=== PATIENT | male | born 1955 | race Caucasian/White ===

== ENCOUNTER 2021-03-26 19:52 | Emergency (ER) | payer MEDICARE ==
[2021-03-26 20:06] VITALS: RESP 18; TEMP 98.9
[2021-03-26] MEDS ORDERED: HYDROmorphone 0.5 MG/0.5 ML SYRINGE IVP STA (20:33)
--- NOTE | 2021-03-26 20:42 | ED ---
Lower Extremity Injury HPI - General Chief Complaint: Extremity Injury, Lower Stated Complaint: Fall Time Seen by Provider: 03/26/21 20:19 Source: patient Mode of arrival: EMS Limitations: no limitations - History of Present Illness Initial Comments: 65-year-old male presents to emergency department with a chief complaint of a fall. This occurred about one hour prior to arrival when he jumped a fence. Patient brought to the ED via EMS. Patient ready received 100 g of fentanyl. States he immediately felt pain in the left knee that is radiating distally. States most the pain is located in his knee and reports "it does not feel aligned." Patient denies any pain in the hip or the femur. Reports pain mostly distally. Patient reports pain with movement of the left knee. However, he denies any paresthesias. He denies any head injuries from the fall. - Related Data Home Medications Medication Instructions Recorded Confirmed Atorvastatin Calcium [Lipitor] 40 mg PO HS 03/26/21 03/26/21 Losartan/Hydrochlorothiazide 1 tab PO DAILY 03/26/21 03/26/21 [Losartan-Hctz 100-12.5 mg Tab] Omeprazole [PriLOSEC] 40 mg PO HS 03/26/21 03/26/21 amLODIPine [Norvasc] 10 mg PO DAILY 03/26/21 03/26/21 buPROPion HCL [buPROPion HCL SR] 150 mg PO DAILY 03/26/21 03/26/21 metFORMIN HCL 500 mg PO BID 03/26/21 03/26/21 Allergies Allergy/AdvReac Type Severity Reaction Status Date / Time No Known Allergies Allergy Verified 03/26/21 22:34 Review of Systems ROS Statement: Those systems with pertinent positive or pertinent negative responses have been documented in the HPI. ROS Other: All systems not noted in ROS Statement are negative. Past Medical History Past Medical History: Diabetes Mellitus, Hyperlipidemia, Hypertension History of Any Multi-Drug Resistant Organisms: None Reported Past Surgical History: Orthopedic Surgery Past Psychological History: No Psychological Hx Reported Smoking Status: Former smoker Past Alcohol Use History: Daily Past Drug Use History: None Reported General Exam Limitations: no limitations General appearance: alert, in no apparent distress, in distress Head exam: Present: atraumatic, normocephalic, normal inspection Eye exam: Present: normal appearance, PERRL, EOMI Pupils: Present: normal accommodation ENT exam: Present: normal exam, normal oropharynx, mucous membranes moist Neck exam: Present: normal inspection, full ROM. Absent: tenderness, lymphadenopathy Respiratory exam: Present: normal lung sounds bilaterally. Absent: respiratory distress, rales Cardiovascular Exam: Present: regular rate, normal rhythm, normal heart sounds. Absent: systolic murmur GI/Abdominal exam: Present: soft. Absent: distended, tenderness, guarding, rebound, rigid Extremities exam: Present: normal inspection (Left lateral deviation of the left leg at the knee.), tenderness (Left knee tenderness. He also has tenderness over the medial malleolus with some associated ecchymosis.), normal capillary refill, joint swelling (Left knee swelling), other (Palpable DP and PT bilaterally. Sensation intact in the left leg). Absent: full ROM (Limited range of motion of the left knee), pedal edema Back exam: Present: normal inspection, full ROM. Absent: tenderness, CVA tenderness (R), CVA tenderness (L), muscle spasm, paraspinal tenderness Neurological exam: Present: alert, oriented X3 Psychiatric exam: Present: normal affect, normal mood Skin exam: Present: warm, dry, intact, normal color Course Vital Signs 03/26/21 03/26/21 19:53 22:18 Temperature 98.9 F Pulse Rate 79 88 Respiratory 18 Rate Blood Pressure 115/62 121/71 O2 Sat by Pulse 97 100 Oximetry Procedures - Orthopedic Splinting/Casting Injury #1 Side: right Lower Extremity Injury Location: ankle Lower Extremity Immobilizer: posterior splint, stirrup splint, Jose wrap, synthetic pre-padded splint Medical Decision Making - Medical Decision Making 65-year-old male presents emergency Department with a chief complaint of a fall. On physical examination, he has lateral deviation of the left leg at the knee. Also has tenderness over the medial malleolus. Patient was given fentanyl in the ambulance and additional analgesia in the emergency department. Compartmen ts are soft. X-rays obtained show a comminuted fracture of the proximal tibia. There is also a medial malleolus fracture of the right ankle. Posterior splint with ankle stirrup applied. The immobilizer applied as well. I spoke to personally evaluated the patient and spoke to from [facility] who will accept the transfer via and lids. ambulance. Case discussed with . Disposition Clinical Impression: Fracture of proximal end of left tibia, Fractured medial malleolus Disposition: OTHER INSTITUTION NOT DEFINED Condition: Good Is patient prescribed a controlled substance at d/c from ED?: No Referrals: Nonstaff,Physician [REFERRING] - 1-2 days Time of Disposition: 23:44 - Out of Hospital Transfer - Req. Specs Out of Hospital Transfer - Requested Specifics: Other Emergency Center ([facility])
--- NOTE | 2021-03-26 21:45 | XR ---
EXAMINATION TYPE: XR tibia fibula LT DATE OF EXAM: 03/26/2021 COMPARISON: NONE HISTORY: Leg pain TECHNIQUE: 4 views FINDINGS: There is comminuted fracture of the proximal tibia. There is significant impaction of the m edial tibial condyle. Fracture line extends vertically into the tibial spines. There is knee joint ef fusion. The distal femur is intact. The ankle joint is intact. I see no definite fibula fracture. IMPRESSION: Impacted comminuted proximal tibial fracture.
--- NOTE | 2021-03-26 21:46 | XR ---
EXAMINATION TYPE: XR knee complete LT DATE OF EXAM: 03/26/2021 COMPARISON: NONE HISTORY: Pain TECHNIQUE: Review FINDINGS: There is transverse comminuted fracture proximal tibia. There is impaction of the fragments . There is no dislocation. There is knee joint effusion. Patella is intact. Distal femur is intact IMPRESSION: Impacted comminuted intra-articular fracture of the proximal tibia.
--- NOTE | 2021-03-26 21:47 | XR ---
EXAMINATION TYPE: XR Hip Complete LT DATE OF EXAM: 03/26/2021 COMPARISON: NONE HISTORY: Hip pain TECHNIQUE: 2 views FINDINGS: I see no fracture nor dislocation. Hip joint space is normal. There is no hip dysplasia. IMPRESSION: Negative left hip exam.
--- NOTE | 2021-03-26 21:48 | XR ---
EXAMINATION TYPE: XR ankle complete LT DATE OF EXAM: 03/26/2021 COMPARISON: NONE HISTORY: Pain TECHNIQUE: 3 views FINDINGS: Ankle mortise is anatomic. I see no fracture nor dislocation. Joint spaces are normal. IMPRESSION: Negative left ankle exam.
[2021-03-26] MEDS ORDERED: HYDROmorphone 1 MG/ML 1 ML SYRINGE IVP STA (22:05)
[2021-03-26 22:21] VITALS: BP 121/71; PULSE 88
--- NOTE | 2021-03-26 23:32 | XR ---
EXAMINATION TYPE: XR ankle complete RT DATE OF EXAM: 03/26/2021 COMPARISON: NONE HISTORY: Pain TECHNIQUE: 3 views FINDINGS: There is transverse fracture of the medial malleolus. Ankle mortise is anatomic. There is m edial soft tissue swelling. There is separation of the fragment 5 mm. There is no dislocation. There is soft tissue swelling. IMPRESSION: Acute mildly displaced fracture of the medial malleolus. Soft tissue swelling.
--- NOTE | 2021-03-26 23:36 | P.CNOR ---
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 The patient was jumping over small fence to get to his friends yard and came down and had sudden acute pain at his left knee. He was unable to get up and had to be brought to the hospital by ambulance. He had obvious deformity and pain in his left knee. He denied any prior problems with his knees. He denies any loss consciousness denies any pain in his neck or head. He does have some soreness at his right ankle as well. He denies seeing any bleeding. He denies any numbness tingling. Denies any antecedent pain or prior injury. The patient's brother was Dr. Taurus Nguyen who was an orthopedic surgeon here at [facility] last year. Review of Systems As stated per HPI. He does have some pain at his right ankle as well as his left knee. The bulk of his pains in his left knee. Unable walk or move around because of his knee pain. He denies any hip pain or abdominal pain denies chest pain shortness of breath. Denies any loss consciousness denies hitting his head. Past Medical History Past Medical History: Diabetes Mellitus, Hyperlipidemia, Hypertension History of Any Multi-Drug Resistant Organisms: None Reported Past Surgical History: Orthopedic Surgery Past Psychological History: No Psychological Hx Reported Smoking Status: Former smoker Past Alcohol Use History: Daily Past Drug Use History: None Reported Medications and Allergies Home Medications Medication Instructions Recorded Confirmed Type Atorvastatin Calcium [Lipitor] 40 mg PO HS 03/26/21 03/26/21 History Losartan/Hydrochlorothiazide 1 tab PO DAILY 03/26/21 03/26/21 History [Losartan-Hctz 100-12.5 mg Tab] Omeprazole [PriLOSEC] 40 mg PO HS 03/26/21 03/26/21 History amLODIPine [Norvasc] 10 mg PO DAILY 03/26/21 03/26/21 History buPROPion HCL [buPROPion HCL SR] 150 mg PO DAILY 03/26/21 03/26/21 History metFORMIN HCL 500 mg PO BID 03/26/21 03/26/21 History Allergies Allergy/AdvReac Type Severity Reaction Status Date / Time No Known Allergies Allergy Verified 03/26/21 22:34 Physical Examination Osteopathic Statement: *. No significant issues noted on an osteopathic structural exam other than those noted in the History and Physical/Consult. - Knee left Appearance: valgus alignment in stance (His left knee there is some swelling. There is no open wounds lacerations or abrasions. He has significant tenderness diffusely over his knee particularly his tibial plateau. There is valgus alignment of his knee) Effusion grade: grade 2 (Neurologically he is intact he has sustained dorsal flexion plantar flexion and EHL intact pulses 2 over 4 his dorsalis pedis posterior tibial, his compartments are soft throughout, no pain with passive stretch) - Ankle & Foot right Ankle appearance: swelling (At the right medial malleolus there is some swelling and ecchymosis. He is tender over the distal medial malleolus. He has some tenderness over his lateral malleolus as well, particularly at the anterior talofibular) Results - Diagnostic results Knee x-ray: report reviewed, image reviewed (X-rays of his left knee show a comminuted intra-articular split by a condylar tibial plateau fracture with depression and displacement particularly at the lateral condyle. His a Schatzker type tibial plateau fracture) Ankle/Foot x-ray: pending (X-rays of his right ankle are also taken but they're still pending results), report reviewed Assessment and Plan Assessment: Left tibial plateau Schatzker type fracture with bicondylar comminution and severe depression particularly at the lateral compartment, closed neurologically intact, acute traumatic due to a fall Left knee pain and inability to ambulate due to tibial plateau fracture Right ankle pain with swelling with pending x-rays Plan: Left tibial plateau Schatzker type fracture with bicondylar comminution and severe depression particularly at the lateral compartment, closed neurologically intact, acute traumatic due to a fall Left knee pain and inability to ambulate due to tibial plateau fracture Right ankle pain with swelling with pending x-rays The patient has a major traumatic injury of his left knee with severe comminution at the tibial plateau involving the medial and lateral tibial plateau with significant depression and split at the articular surface. This would be a Nilda type fracture and would involve significant treatment for the best chance of healing. The fracture of this type would best be served with orthopedic, specialty operative care. He may be a staged procedure with spanning with external fixation and then an open reduction internal fixation. I discussed this with the patient at length. This would be a procedure that would be quite complex and would best be handled with a traumatologist. I talked with Dr. Morgan at [facility]. He is a traumatologist for orthopedic surgery with Dr Starkey and I discussed the fracture with him. He feels comfortable with excepting the patient for transfer and for providing definitive treatment for the fracture. I discussed this with patient at length and discussed the risk of occasions alternatives and benefits of his procedures and the nature of his injury with him I discussed with his family as well they're comfortable with transfer to [facility] for definitive care with Dr. Morgan. I answered their questions best my ability in a language can understand. We will place him in a knee immobilizer and allow for likely external fixation with Dr. oMrgan tomorrow with further imaging once the external fixations intact and planning for definitive care. The patient also has some swelling in his right ankle and he is obtaining some x-rays of his ankle at this point and they're still pending. He can perform definitive care for that as well. I discussed this with the ER staff and they'll plan for transfer this evening. Time with Patient: Greater than 30
--- NOTE | 2021-03-27 00:14 | XR ---
EXAMINATION TYPE: XR tibia fibula RT DATE OF EXAM: 03/27/2021 COMPARISON: NONE HISTORY: Pain TECHNIQUE: 2 views FINDINGS: There is transverse fracture of the medial malleolus with a few millimeter displacement. An kle mortise is anatomic. The fibula is intact. Knee joint appears anatomic. IMPRESSION: Acute fracture medial malleolus with minimal displacement.
[2021-03-27] MEDS ORDERED: HYDROmorphone 0.5 MG/0.5 ML SYRINGE IVP STA (00:19)
== END 2021-03-27 00:46 | disposition other institution (70) ==
LOC: EC 19:52
DX: S82.102A Unspecified fracture of upper end of left tibia, initial encounter for closed fracture (principal); S82.51XA Displaced fracture of medial malleolus of right tibia, initial encounter for closed fracture; I10 Essential (primary) hypertension; E11.9 Type 2 diabetes mellitus without complications; E78.5 Hyperlipidemia, unspecified; Z79.84 Long term (current) use of oral hypoglycemic drugs; Z79.899 Other long term (current) drug therapy; Z87.891 Personal history of nicotine dependence; W19.XXXA Unspecified fall, initial encounter; Y93.39 Activity, other involving climbing, rappelling and jumping off; Y92.009 Unspecified place in unspecified non-institutional (private) residence as the place of occurrence of the external cause
CPT/HCPCS: 73502; 73590 ×2; 73610 ×2; 73562; 99285; 29505; 96374; 96376; L1830; J1170 ×3

== ENCOUNTER 2025-01-22 07:51 | Day surgery (SDC) | payer MEDICARE, OTHER ==
[2025-01-21 09:14] VITALS: BMI 35.2
[2025-01-22 08:20] VITALS: RESP 16; TEMP 97.5
[2025-01-22] MEDS: IV FLUID CONTINUATION 1,000 ML IV ONE (08:20)
[2025-01-22] MEDS: LACTATED RINGERS 1,000 ML IV SCH (08:20)
[2025-01-22] MEDS ORDERED: PROPOFOL 10 MG/ML 20 ML VIAL IV ONE (08:52)
--- NOTE | 2025-01-22 09:09 | P.PCN ---
Date of Procedure: 01/22/25 Procedure(s) Performed: BRIEF HISTORY: Patient is a 69-year-old pleasant white male scheduled for an elective colonoscopy as a part of screening for colon cancer/positive Cologuard. PROCEDURE PERFORMED: Colonoscopy with biopsy and snare polypectomy. PREOPERATIVE DIAGNOSIS: Screening for colon cancer/positive Cologuard. IV sedation per Anesthesia. PROCEDURE: After informed consent was obtained, the patient, was brought into the endoscopy unit. IV sedation was administered by Anesthesia under continuous monitoring. Digital rectal examination was normal. Initially the Olympus CF-160 flexible video colonoscope was then inserted in the rectum, gradually advanced into the cecum without any difficulty. Careful examination was performed as the scope was gradually being withdrawn. Ileocecal valve and the appendiceal orifice were visualized and appeared normal. Prep was excellent. Mucosa of the cecum had a 3 mm polyp that was removed by cold biopsy. Rest of the, ascending colon, transverse colon, appeared normal. In the descending colon there was a 5 mm polyp removed by cold snare polypectomy. Rest of the descending colon, sigmoid colon, and rectum appeared normal. In the proximal rectum there was a 5 mm polyp removed by cold snare polypectomy. Moderate sigmoid diverticulosis seen. Retroflexion was performed in the rectum and no lesions were seen. The patient tolerated the procedure well. IMPRESSION: 3 mm cecal polyp status post cold biopsy 5 mm descending colon polyp status post cold snare polypectomy 5 mm proximal rectal polyp status post cold snare polypectomy Scattered sigmoid diverticulosis RECOMMENDATIONS: Findings of this examination were discussed with the patient as well as his family.. He was advised to follow-up with the biopsy results. If the biopsy reveals adenoma he can have repeat colonoscopy in 3 to 5 years.
[2025-01-22 09:37] VITALS: BP 115/84; PULSE 63
== END 2025-01-22 09:53 | disposition home or self-care (01) ==
LOC: ORWHC2ENDO 07:51
PROVIDERS: ATTEND Internal Medicine Gastroenterology
DX: Z12.11 Encounter for screening for malignant neoplasm of colon (principal); D12.4 Benign neoplasm of descending colon; K57.30 Diverticulosis of large intestine without perforation or abscess without bleeding; K62.1 Rectal polyp; K21.9 Gastro-esophageal reflux disease without esophagitis; E78.5 Hyperlipidemia, unspecified; E11.9 Type 2 diabetes mellitus without complications; I10 Essential (primary) hypertension; Z79.02 Long term (current) use of antithrombotics/antiplatelets; Z79.899 Other long term (current) drug therapy
CPT/HCPCS: 88305; 45380; 45385; J2704